=== PATIENT | male | born 1960 | race Asian ===

== ENCOUNTER 2019-06-02 10:07 | Emergency (ER) | payer OTHER ==
[2019-06-02 10:25] VITALS: BP 121/67
--- NOTE | 2019-06-02 10:27 | UC ---
Respiratory Complaint HPI - HPI Summary HPI Summary: 58 yo male presents with cough. He tells me that 1 week ago he developed a dry cough. He did not take any OTC medications and felt completely better by 05/28. On 05/31 his symptoms returned and his cough is worse than before. Cough is nonproductive. He does not smoke. Denies fever, chills, sinus symptoms, sob, rash. - History of Current Complaint Chief Complaint: UCRespiratory Stated Complaint: URI Time Seen by Provider: 06/02/19 10:27 Hx Obtained From: Patient Onset/Duration: Gradual Onset Severity Initially: Mild Severity Currently: Mild Pain Intensity: 3 Pain Scale Used: 0-10 Numeric Character: Cough: Nonproductive - Allergies/Home Medications Allergies/Adverse Reactions: Allergies Allergy/AdvReac Type Severity Reaction Status Date / Time No Known Allergies Allergy Verified 06/02/19 10:25 Home Medications: Home Medications Glucosam/Chond/Hyalu/Cf Borate [Move Free import2 Ad] 1 tab PO DAILY [History Confirmed 06/02/19] PMH/Surg Hx/FS Hx/Imm Hx - Additional Past Medical History Additional PMH: None - Surgical History Surgical History: None - Family History Known Family History: Positive: Non-Contributory - Social History Occupation: Employed Full-time Lives: With Family Alcohol Use: Rare Substance Use Type: None Smoking Status (MU): Never Smoked Tobacco Review of Systems All Other Systems Reviewed And Are Negative: No Constitutional: Positive: Negative Skin: Positive: Negative Eyes: Positive: Negative ENT: Positive: Negative Respiratory: Positive: Cough Cardiovascular: Positive: Negative Gastrointestinal: Positive: Negative Neurovascular: Positive: Negative Neurological: Positive: Negative Psychological: Positive: Negative Physical Exam - Summary Physical Exam Summary: GENERAL: NAD. WDWN. No pain distress. SKIN: No rashes, sores, lesions, or open wounds. HEENT: Head: AT/NC Eyes: EOM intact. Conjunctiva clear without inflammation or discharge. Ears: Hearing grossly normal. TMs intact, no bulging, erythema, or edema. Nose: Nasal mucosa pink and moist. NTTP maxillary and frontal sinus. Throat: Posterior oropharynx without exudates, erythema, or tonsillar enlargement. Uvula midline. NECK: Supple. Nontender. No lymphadenopathy. CHEST: CTAB. No accessory muscle use. Breathing comfortably and in no distress. CV: RRR. Pulses intact. Cap refill <2seconds NEURO: Alert. PSYCH: Age appropriate behavior. Triage Information Reviewed: Yes Vital Signs: Initial Vital Signs Temp 97.8 F 06/02/19 10:20 Pulse 90 06/02/19 10:20 Resp 18 06/02/19 10:20 BP 121/67 06/02/19 10:20 Pulse Ox 99 06/02/19 10:20 Vital Signs Reviewed: Yes Respiratory Course/Dx - Course Course Of Treatment: Suspect viral URI. Discussed bacterial vs viral causes with the pt and he prefers to be on antibiotics at this time. - Differential Dx/Diagnosis Provider Diagnosis: URI (upper respiratory infection) Discharge ED - Sign-Out/Discharge Documenting (check all that apply): Patient Departure All imaging exams completed and their final reports reviewed: No Studies - Discharge Plan Condition: Stable Disposition: HOME Prescriptions: Azithromycin TAB* [Zithromax TAB (Z-ALINE) 250 mg #6 tabs] 2 tab PO .TODAY, THEN 1 DAILY #1 aline Patient Education Materials: Acute Cough (ED) Referrals: Edmar Blanco MD [Primary Care Provider] - Additional Instructions: If you develop a fever, shortness of breath, chest pain, new or worsening symptoms - please call your PCP or go to the ED immediately. - Billing Disposition and Condition Condition: STABLE Disposition: Home
== END 2019-06-02 10:55 | disposition home or self-care (01) ==
LOC: UCEAST 10:07
DX: J06.9 Acute upper respiratory infection, unspecified (principal)
CPT/HCPCS: 99212; G0463